=== PATIENT | female | born 1970 | race Caucasian/White ===

== ENCOUNTER 2016-10-01 20:48 | Emergency (ER) | payer BC | END 2016-10-02 02:10 | disposition home or self-care (01) | LOC: ER1 20:48 | DX: N81.10 Cystocele, unspecified (principal); I10 Essential (primary) hypertension; Z88.2 Allergy status to sulfonamides; Z88.8 Allergy status to other drugs, medicaments and biological substances; Z79.899 Other long term (current) drug therapy | CPT/HCPCS: 81001; 87086; 96374; 96375; 99284; J2270; J2405 ==